=== PATIENT | female | born 1945 | race Caucasian/White ===

== ENCOUNTER 2024-10-05 12:50 | Inpatient (IN) | payer MEDICARE, OTHER ==
[~2024-10-05] VITALS: Ht 157.5 cm; Wt 70.8 kg
[2024-10-05 15:34] VITALS: BP 106/74; TEMP 98.1
[2024-10-05 15:51] VITALS: BP 106/74; TEMP 98.1
[2024-10-06] MEDS ORDERED: SACU1TAB7 PO (15:45)
[2024-10-06] MEDS ORDERED: CARV12.52 PO (15:46)
[2024-10-06] MEDS ORDERED: EZET10TA32 PO (15:46)
[2024-10-06] MEDS ORDERED: DAPA10TA PO (15:46)
[2024-10-06] MEDS ORDERED: ATOR40TA PO (15:47)
[2024-10-06] MEDS ORDERED: CLOP75TA33 PO (15:47)
[2024-10-06] MEDS ORDERED: ACET325T53 PO (15:48)
[2024-10-06] MEDS ORDERED: CALC500T88 PO (15:49)
[2024-10-06] MEDS ORDERED: DEXT50DI8 IV (15:53)
[2024-10-06] MEDS ORDERED: ENOX40DI9 SQ (15:53)
[2024-10-06] MEDS ORDERED: HYDR-3980 PO (15:54)
[2024-10-06] MEDS ORDERED: HYDR-4209 PO (15:55)
[2024-10-06] MEDS ORDERED: HYDR1SYR IV (15:56)
[2024-10-06] MEDS ORDERED: INSU100V28 SQ (15:57)
[2024-10-06] MEDS ORDERED: LINA5TAB PO (15:58)
[2024-10-06] MEDS ORDERED: PREG50CA PO (15:58)
[2024-10-06] MEDS ORDERED: PANT40TA49 PO (15:58)
[2024-10-06] MEDS ORDERED: SODI62.58 IV (16:00)
[2024-10-06 16:07] VITALS: BP 117/42; TEMP 98.6; O2SAT 96
[2024-10-06] MEDS ORDERED: ZINC113P3 TP (16:24)
[2024-10-06] MEDS ORDERED: ACETAMINOPHEN 325 MG TABLET-SA PATIENTS-PAIN ONLY PO PRN (17:15)
[2024-10-06] MEDS ORDERED: INSULIN REGULAR, HUMAN 300 UNITS/3 ML VIAL SQ PRN (17:15)
[2024-10-06] MEDS ORDERED: INSULIN REGULAR, HUMAN 1000 UNIT/10 ML VIAL SQ PRN (17:15)
[2024-10-06] MEDS ORDERED: DEXTROSE 50% 50 ML DISP.SYRIN IV PRN ×2 (17:15)
[2024-10-06] MEDS: HYDROCODONE/APAP 10-325 MG TABLET PO PRN (17:31)
[2024-10-06 19:00] VITALS: BP 116/53; TEMP 98.7; O2SAT 95
[2024-10-06] MEDS: INSULIN REGULAR, HUMAN 1000 UNIT/10 ML VIAL SQ PRN (20:42)
[2024-10-06] MEDS: ATORVASTATIN 40 MG TABLET PO SCH (20:45)
[2024-10-06] MEDS: HYDROCODONE/APAP 5-325MG TABLET PO PRN (20:46)
[2024-10-06] MEDS: BLOOD SUGAR DIAGNOSTIC 1 EACH STRIP VI SCH (20:47)
[2024-10-06] MEDS: CARVEDILOL 12.5 MG TABLET PO SCH (20:47)
[2024-10-06] MEDS: SACUBITRIL/VALSARTAN 49 MG-51 MG TABLET PO SCH (20:48)
[2024-10-07 05:15] VITALS: BP 113/40; TEMP 98.1; O2SAT 98
[2024-10-07] MEDS: PANTOPRAZOLE SODIUM 40 MG TABLET.DR PO SCH (06:20)
[2024-10-07 08:00] VITALS: BP 107/37; TEMP 98.8; O2SAT 96
[2024-10-07] MEDS: EZETIMIBE 10 MG TABLET PO SCH (10:25)
[2024-10-07] MEDS: ENOXAPARIN SODIUM 40 MG/0.4 ML DISP.SYRIN SQ SCH (10:25)
[2024-10-07] MEDS: CLOPIDOGREL 75 MG TABLET PO SCH (10:26)
[2024-10-07] MEDS: PREGABALIN 50 MG CAPSULE PO SCH (10:26)
[2024-10-07] MEDS: LINAGLIPTIN 5 MG TABLET PO SCH (10:26)
[2024-10-07] MEDS: CALCIUM CARBONATE 500 MG TABLET PO SCH (10:26)
[2024-10-07] MEDS: DAPAGLIFLOZIN PROPANEDIOL 10 MG TABLET PO SCH (10:27)
[2024-10-07] MEDS: SOD FERRIC GLUC COMPLX/SUCROSE 125 MG in IV NORMAL SALINE 100 ML IV SCH (14:43)
[2024-10-07 18:03] VITALS: BP 111/42; TEMP 98.3; O2SAT 99
[2024-10-07 20:40] VITALS: BP 113/33; TEMP 97.9; O2SAT 100
[2024-10-07] MEDS: DOCUSATE SODIUM 100 MG CAPSULE PO SCH (21:06)
[2024-10-08] VITALS (7 sets, daily range): BP systolic 87–124; BP diastolic 22–54; TEMP 97.4–98.7; O2SAT 96–100
[2024-10-08 07:43] LABS: PLATELET COUNT (AUTO) 180 K/uL (179-408); RED BLOOD CELL COUNT(AUTO) 2.66 MIL/uL (3.63-4.92); RED CELL DISTRIBUTION WIDTH 15.4 % (12.3-17.7); WHITE BLOOD COUNT (AUTO) 8.3 K/uL (3.8-11.8)
[2024-10-08 08:14] LABS: IRON, SERUM 33 ug/dL (50-175)
[2024-10-08] MEDS: ACETAMINOPHEN 325 MG TABLET PO PRN (08:19)
[2024-10-08 08:25] LABS: ASPARTATE AMINOTRANSFERASE 26 U/L (15-37); CREATININE 1.0 mg/dL (0.6-1.3); SODIUM SERUM 139 mmol/L (136-145); TOTAL PROTEIN, SERUM 5.8 g/dL (6.4-8.2); UREA NITROGEN, BLOOD 26 mg/dL (7-18)
[2024-10-08] MEDS: GLUCERNA SHAKE 237 ML CAN PO SCH (17:27)
[2024-10-09 06:39] VITALS: BP 138/60; TEMP 98.3; O2SAT 98
[2024-10-09 08:00] VITALS: BP 130/58; TEMP 98.9; O2SAT 97
[2024-10-09 16:00] VITALS: BP 132/59; TEMP 97.8; O2SAT 100
[2024-10-09 22:09] VITALS: BP 109/45; TEMP 98.4; O2SAT 100
[2024-10-10 06:54] VITALS: BP 122/52; TEMP 98.5; O2SAT 95
[2024-10-10 07:57] VITALS: BP 134/55; TEMP 98.3; O2SAT 97
[2024-10-10 16:00] VITALS: BP 104/51; TEMP 97.8; O2SAT 97
[2024-10-10 20:00] VITALS: BP 126/50; TEMP 97.6; O2SAT 97
[2024-10-11] MEDS: IBUPROFEN 400 MG TABLET PO PRN (05:35)
[2024-10-11 06:43] VITALS: BP 119/44; TEMP 98.1; O2SAT 98
[2024-10-11 07:33] VITALS: BP 98/54; TEMP 97.9; O2SAT 99
[2024-10-11 13:58] LABS: *BILIRUBIN,URIN NEGATIVE (NEGATIVE); *BLOOD, URINE 2+ (NEGATIVE); *CLARITY,URINE CLOUDY (CLEAR); *COLOR,URINE YELLOW (YELLOW); *KETONES,URINE 2+ (NEGATIVE); *PROTEIN,URINE 2+ (NEGATIVE); *UROBILINOGEN,URINE 0.2 E.U./dl (NORMAL); LEUKOCYTE ESTERASE ,URINE TRACE (NEGATIVE); NITRITE, URINE NEGATIVE (NEGATIVE)
[2024-10-11 14:12] LABS: UGLUCOSE 3+ (NEGATIVE)
[2024-10-11 14:43] LABS: SQUAMOUS EPITHELIAL CELL,UR FEW /HPF (NONE SEEN); YEAST,URINE BUDDING YEAST /HPF (NONE SEEN)
[2024-10-11 16:00] VITALS: BP 101/49; TEMP 97.8; O2SAT 97
[2024-10-11 19:00] VITALS: BP 119/47; TEMP 98.1; O2SAT 99
[2024-10-11] MEDS: REMEDY ESSENTIAL ZINC PASTE 113 GM TOP SCH (20:13)
[2024-10-12 05:00] VITALS: BP 122/47; TEMP 98.9; O2SAT 98
[2024-10-12 07:42] VITALS: BP 125/47; TEMP 98; O2SAT 100
[2024-10-12] MEDS: LACTULOSE 20 G/30 ML LIQUID UDC PO SCH (10:03)
[2024-10-12] MEDS: DOCUSATE SODIUM 100 MG CAPSULE PO SCH (10:03)
[2024-10-12] MEDS: MIRALAX 17 GM POWD.PACK PO SCH (10:04)
[2024-10-12 15:43] VITALS: BP 92/33; TEMP 97.4; O2SAT 100
[2024-10-12 20:11] VITALS: BP 119/46; TEMP 97.8
[2024-10-13 05:06] VITALS: BP 133/45; TEMP 97.8; O2SAT 97
[2024-10-13 08:41] VITALS: BP 118/55; TEMP 97.7; O2SAT 100
[2024-10-13] MEDS ORDERED: DIATR MEGLU/DIATRIZOATE SODIUM 120 ML BOTTLE ONE (15:32)
[2024-10-13 16:00] VITALS: BP 103/36; TEMP 95.8; O2SAT 94
[2024-10-13] MEDS: GLUCERNA SHAKE 237 ML CAN PO SCH (16:53)
[2024-10-13 20:00] VITALS: BP 119/46; TEMP 97.5; O2SAT 100
[2024-10-14 05:00] VITALS: BP 119/52; TEMP 97.7; O2SAT 98
[2024-10-14 07:17] LABS: PLATELET COUNT (AUTO) 361 K/uL (179-408); RED BLOOD CELL COUNT(AUTO) 2.93 MIL/uL (3.63-4.92); RED CELL DISTRIBUTION WIDTH 21.9 % (12.3-17.7); WHITE BLOOD COUNT (AUTO) 16.6 K/uL (3.8-11.8)
[2024-10-14 07:26] LABS: CREATININE 1.3 mg/dL (0.6-1.3); SODIUM SERUM 138 mmol/L (136-145); UREA NITROGEN, BLOOD 45 mg/dL (7-18)
[2024-10-14 07:30] VITALS: BP 111/58; TEMP 97.4; O2SAT 98
[2024-10-14 15:32] VITALS: BP 101/39; TEMP 97.8; O2SAT 98
[2024-10-14] MEDS: IV NORMAL SALINE 1000 ML BAG IV ONE (16:41)
[2024-10-14 21:57] VITALS: BP_SYST 37; BP_SYST 92; BP_DIAS 37; TEMP 97.3; O2SAT 92
[2024-10-15 06:21] VITALS: BP 104/42; TEMP 97.4; O2SAT 96
[2024-10-15 08:20] VITALS: BP 86/36; TEMP 97.5; O2SAT 95
[2024-10-15 08:24] LABS: PLATELET COUNT (AUTO) 292 K/uL (179-408); RED BLOOD CELL COUNT(AUTO) 2.86 MIL/uL (3.63-4.92); RED CELL DISTRIBUTION WIDTH 22.7 % (12.3-17.7); WHITE BLOOD COUNT (AUTO) 13.6 K/uL (3.8-11.8)
[2024-10-15 08:30] LABS: CREATININE 1.1 mg/dL (0.6-1.3); SODIUM SERUM 137 mmol/L (136-145); UREA NITROGEN, BLOOD 42 mg/dL (7-18)
[2024-10-15 08:36] LABS: ASPARTATE AMINOTRANSFERASE 16 U/L (15-37); TOTAL PROTEIN, SERUM 6.3 g/dL (6.4-8.2)
[2024-10-15] MEDS ORDERED: INSULIN GLARGINE,HUM 300 UNITS/3 ML CARTRIDGE SQ SCH (09:30)
[2024-10-15] MEDS: INSULIN GLARGINE,HUM 300 UNITS/3 ML CARTRIDGE SQ SCH (11:08)
[2024-10-15] MEDS: HYDROMORPHONE HCL 2 MG TABLET PO PRN (15:31)
[2024-10-15 16:27] VITALS: BP 102/35; TEMP 98.3; O2SAT 98
[2024-10-15 21:09] VITALS: BP 101/33; TEMP 98.1; O2SAT 97
[2024-10-16 05:40] VITALS: BP 131/36; TEMP 98; O2SAT 95
[2024-10-16 08:25] VITALS: BP 116/71; TEMP 98.4; O2SAT 94
[2024-10-16] MEDS: NITROFURANTOIN/NITROFURAN MAC 100 MG CAPSULE PO SCH (11:50)
[2024-10-16 15:53] VITALS: BP 126/57; TEMP 98.3; O2SAT 97
[2024-10-16] MEDS: KETOCONAZOLE 2% CREAM 30 GM TUBE TP SCH (16:58)
[2024-10-16 20:53] VITALS: BP 115/58; TEMP 98.6; O2SAT 96
[2024-10-17 06:21] VITALS: BP 122/50; TEMP 98.2; O2SAT 95
[2024-10-17 07:50] VITALS: BP 126/38; TEMP 98; O2SAT 96
[2024-10-17 08:39] LABS: PLATELET COUNT (AUTO) 325 K/uL (179-408); RED BLOOD CELL COUNT(AUTO) 3.13 MIL/uL (3.63-4.92); RED CELL DISTRIBUTION WIDTH 22.3 % (12.3-17.7); WHITE BLOOD COUNT (AUTO) 7.9 K/uL (3.8-11.8)
[2024-10-17 08:52] LABS: CREATININE 1.0 mg/dL (0.6-1.3); SODIUM SERUM 137 mmol/L (136-145); UREA NITROGEN, BLOOD 29 mg/dL (7-18)
[2024-10-17 08:59] LABS: ASPARTATE AMINOTRANSFERASE 25 U/L (15-37); TOTAL PROTEIN, SERUM 6.7 g/dL (6.4-8.2)
[2024-10-17 16:03] VITALS: BP 119/45; TEMP 98.2; O2SAT 96
[2024-10-17 20:00] VITALS: BP 117/42; TEMP 99.6; O2SAT 95
[2024-10-18 05:00] VITALS: BP 124/55; TEMP 98.1; O2SAT 96
[2024-10-18 07:50] VITALS: BP 125/51; TEMP 98; O2SAT 97
[2024-10-18] MEDS: LOPERAMIDE HCL 2 MG CAPSULE PO PRN (11:35)
[2024-10-18 15:57] VITALS: BP 119/44; TEMP 97.7; O2SAT 97
[2024-10-18] MEDS: CLOTRIMAZOLE/BETAMET DIPROP CREAM 15 GM TUBE TOP SCH (16:03)
[2024-10-18 20:01] VITALS: BP 95/37; TEMP 98.2; O2SAT 96
[2024-10-19 07:44] LABS: PLATELET COUNT (AUTO) 282 K/uL (179-408); RED BLOOD CELL COUNT(AUTO) 3.10 MIL/uL (3.63-4.92); RED CELL DISTRIBUTION WIDTH 21.4 % (12.3-17.7); WHITE BLOOD COUNT (AUTO) 7.3 K/uL (3.8-11.8)
[2024-10-19 07:55] VITALS: BP 118/50; TEMP 98.2; O2SAT 98
[2024-10-19 08:24] LABS: CREATININE 1.0 mg/dL (0.6-1.3); SODIUM SERUM 139 mmol/L (136-145); UREA NITROGEN, BLOOD 26 mg/dL (7-18)
[2024-10-19 16:00] VITALS: BP 106/41; TEMP 97.6; O2SAT 97
[2024-10-19 20:00] VITALS: BP 113/49; TEMP 98.3; O2SAT 96
[2024-10-20 08:00] VITALS: BP 103/41; TEMP 97.8; O2SAT 97
[2024-10-20 18:41] VITALS: BP 107/43; TEMP 97.6; O2SAT 96
[2024-10-20 20:00] VITALS: BP 114/50; TEMP 98.3; O2SAT 94
[2024-10-20] MEDS: ZOLPIDEM 5 MG TABLET PO PRN (23:15)
[2024-10-21 05:53] VITALS: BP 103/55; TEMP 98.2; O2SAT 95
[2024-10-21 07:15] VITALS: BP 107/67; TEMP 98; O2SAT 96
[2024-10-21] MEDS: METHOCARBAMOL 500 MG TABLET PO PRN (08:26)
[2024-10-21 16:00] VITALS: BP 110/58; TEMP 97.6; O2SAT 95
[2024-10-21 20:00] VITALS: BP 106/45; TEMP 98.4; O2SAT 96
[2024-10-21 21:57] VITALS: BP 118/48; TEMP 98.2; O2SAT 97
[2024-10-22 06:00] VITALS: BP 131/57; TEMP 97.6; O2SAT 98
[2024-10-22 15:38] VITALS: BP 107/41; TEMP 98.2; O2SAT 95
[2024-10-22] MEDS ORDERED: FINA5TAB11 PO (20:11)
[2024-10-22] MEDS ORDERED: NUT.237L36 PO (20:11)
[2024-10-22] MEDS ORDERED: HYDR-4075 PO (20:11)
[2024-10-22] MEDS ORDERED: ICOS1CAP PO (20:11)
[2024-10-22] MEDS ORDERED: LINA5TAB PO (20:11)
[2024-10-22] MEDS ORDERED: CARB1TAB21 PO (20:11)
[2024-10-22] MEDS ORDERED: ONDA-104 PO (20:11)
[2024-10-22] MEDS ORDERED: TAMS-3 PO (20:11)
[2024-10-22] MEDS ORDERED: MAGN400O6 PO (20:11)
[2024-10-22 21:58] VITALS: BP 106/65; TEMP 97.9; O2SAT 98
[2024-10-23 06:48] VITALS: BP 113/41; TEMP 98; O2SAT 98
[2024-10-23 08:30] VITALS: BP 113/41
== END 2024-10-23 14:30 | DRG 560 ==
LOC: UNDOADMIN 12:50 → UNDODISIN 10-23 14:30
PROVIDERS: ADMIT Physical Medicine & Rehabilitation Pain Medicine; ATTEND Physical Medicine & Rehabilitation Pain Medicine
PROC: 05HC33Z Insertion of Infusion Device into Left Basilic Vein, Percutaneous Approach (ICD-10-PCS; principal; 2024-10-14)
DX: S72.21XD Displaced subtrochanteric fracture of right femur, subsequent encounter for closed fracture with routine healing (principal); N17.9 Acute kidney failure, unspecified; N39.0 Urinary tract infection, site not specified; W01.0XXD Fall on same level from slipping, tripping and stumbling without subsequent striking against object, subsequent encounter; D64.9 Anemia, unspecified; E11.40 Type 2 diabetes mellitus with diabetic neuropathy, unspecified; I10 Essential (primary) hypertension; I25.10 Atherosclerotic heart disease of native coronary artery without angina pectoris; K21.9 Gastro-esophageal reflux disease without esophagitis; M19.90 Unspecified osteoarthritis, unspecified site; E66.9 Obesity, unspecified; Z68.28 Body mass index [BMI] 28.0-28.9, adult; E78.5 Hyperlipidemia, unspecified; I11.0 Hypertensive heart disease with heart failure; I50.9 Heart failure, unspecified; I25.5 Ischemic cardiomyopathy; M72.2 Plantar fascial fibromatosis; Z95.1 Presence of aortocoronary bypass graft; Z96.642 Presence of left artificial hip joint; R26.81 Unsteadiness on feet; R19.7 Diarrhea, unspecified
CPT/HCPCS: 36415; 73551; 73630; 74018; 74250; 83550; 83735; 84100; 84443; 85025; 87077; 87086; 97535-GO-CO; A4663; A6209; A6213; J1650; J1815; J2916; J7040; Q9963